=== PATIENT | female | born 1940 | race Caucasian/White ===

== ENCOUNTER 2017-07-27 15:35 | Emergency (ER) | payer BC, MEDICAID ==
[~2017-07-27] VITALS: Ht 152.4 cm; Wt 77.1 kg
[2017-07-27 15:45] VITALS: BP 182/129
--- NOTE | 2017-07-27 16:15 | NUR ---
Patient BIBA BLS, transferred to bed 4. RN evaluating patient at bedside.
[2017-07-27] MEDS ORDERED: MECLIZINE 25 MG TAB PO ONE (16:20)
--- NOTE | 2017-07-27 16:20 | NUR ---
76f biba with c/o 04/16 constant non radiating non provoked "all over head" mckinney x 2 days with dizziness; Pt deneis any sob, cp, visual changes, or abd pain. Pt is aox4. RR are even and unlabored. Pt positioned to comfort, bed down. All needs met at this time. Awaiting er md shirley. Will contniue to monitor
--- NOTE | 2017-07-27 16:32 | NUR ---
PT TO CT VIA ASIA ACCOMPANIED BY AUTOMOBILE MECHANIC
--- NOTE | 2017-07-27 16:45 | NUR ---
pt returned from ct accompanied by nuclear reactor technician
[2017-07-27] MEDS ORDERED: cloNIDine 0.1 MG TAB PO ONE (17:25)
--- NOTE | 2017-07-27 17:44 | NUR ---
lab by bedside
[2017-07-27 17:54] LABS: BASOPHILS # (AUTO) 0.1 K/uL (0.00-0.22); BASOPHILS % (AUTO) 1.7 % (0.0-2.0); EOSINOPHILS # (AUTO) 0.1 K/uL (0-0.4); HEMATOCRIT 39.5 % (36-48); HEMOGLOBIN 12.9 g/dL (12.0-16.0); LYMPHOCYTES # (AUTO) 2.1 K/uL (2.5-16.5); LYMPHOCYTES % (AUTO) 31.3 % (20.5-51.1); MEAN CORPUSCULAR HEMOGLOBIN 30 pg (27-31); MEAN CORPUSCULAR HGB CONC 33 g/dL (33-37); MEAN CORPUSCULAR VOLUME 91 fL (80-94); MONOCYTES # (AUTO) 0.6 K/uL (0.8-1.0); MONOCYTES % (AUTO) 8.5 % (1.7-9.3); NEUTROPHILS # (AUTO) 3.9 K/uL (1.8-7.7); NEUTROPHILS % (AUTO) 57.5 % (42.2-75.2); PLATELET COUNT (AUTO) 293 K/uL (140-450); RED BLOOD CELL COUNT(AUTO) 4.34 MIL/uL (4.20-5.40); RED CELL DISTRIBUTION WIDTH 14.2 % (11.6-13.7); WHITE BLOOD COUNT (AUTO) 6.8 K/uL (4.8-10.8)
--- NOTE | 2017-07-27 18:00 | NUR ---
er md patel by bedside updating pt and family on plan of care. pt sts "i feel better". pt is ao, rr are even and unlabored.
[2017-07-27 18:18] LABS: PROTHROMBIN TIME 9.9 secs (10.8-13.4)
[2017-07-27 18:23] LABS: ANION GAP 13.8 (8-16); CARBON DIOXIDE 25.3 mmol/L (21-32); CHLORIDE 103 mmol/L (98-107); POTASSIUM 4.1 mmol/L (3.5-5.1); SODIUM SERUM 138 mmol/L (136-145)
[2017-07-27 18:24] LABS: ALBUMIN 3.6 g/dL (3.4-5.0); ASPARTATE AMINOTRANSFERASE 30 U/L (15-37); CREATININE 1.2 mg/dL (0.6-1.3); GLUCOSE 105 mg/dL (74-106); TOTAL BILIRUBIN 0.3 mg/dL (0.0-1.0); UREA NITROGEN, BLOOD 18 mg/dL (7-18)
--- NOTE | 2017-07-27 18:50 | NUR ---
attemped to discharge pt. pt remains in [facility] with eyes closed. er md hernández by bedside to reexamine pt. vss. nad.
--- NOTE | 2017-07-27 19:00 | NUR ---
attempted to discharge pt. pt remains in gurney with eyes closed. vss. nad. rr are even and unlabored. security called.
--- NOTE | 2017-07-27 19:05 | NUR ---
attemped to discharge patient. pt remains in rney with eyes closed. rr are even and unlabored. vss. pt able to open and close eyes. lifted arms and patient block her hands from being dropped to face. pt able to move all four extremities. no motor or sensory deficit.
--- NOTE | 2017-07-27 19:05 | NUR ---
Note tgone in EDM - 07/28/17 at 1101 by CHARLOTTE attemped to discharge patient. pt remains in [facility] with eyes closed. rr are even and unlabored. vss. pt able to open and close eyes. lifted arms and patient block her hands from being dropped to face. pt able to move all four extremities.
--- NOTE | 2017-07-27 19:05 | NUR ---
notified chargemaster specialist jen of multiple attempts to discharge pt. jolynn rn by bedside attemping to discharge patient.
--- NOTE | 2017-07-27 19:07 | NUR ---
Note esther in EDM - 07/27/17 at 1927 by CHARLOTTE Patient discharged with v/s stable. Written and verbal after care instructions given and explained. Patient alert, oriented and verbalized understanding of instructions. Ambulatory with steady gait. All questions addressed prior to discharge. ID band removed. Patient advised to follow up with PMD. Rx of Meclizine given. Patient educated on indication of medication including possible reaction and side effects. Opportunity to ask questions provided and answered.
--- NOTE | 2017-07-27 19:07 | NUR ---
Note undone in EDM - 07/28/17 at 0948 by CHARLOTTE Patient discharged with v/s stable. Written and verbal after care instructions given and explained. Patient alert, oriented and verbalized understanding of instructions. Wheel Chair Assisted with to car with [employer] EMT and security. All questions addressed prior to discharge. ID band removed. Patient advised to follow up with PMD. Rx of meclizine given. Patient educated on indication of medication including possible reaction and side effects. Opportunity to ask questions provided and answered.
[2017-07-27 19:11] VITALS: BP 166/65
--- NOTE | 2017-07-28 09:07 | NUR ---
Patient discharged with v/s stable. Written and verbal after care instructions given and explained to patient and daughter. Daughter verbalized understanding of instructions. Wheel Chair Assisted with to car with security, [employer] emt, and daughter. All questions addressed prior to discharge. ID band removed. Patient/Daughter advised to follow up with PMD. Rx of given. Patient/Daughter educated on indication of medication including possible reaction and side effects. Opportunity to ask questions provided and answered.
== END 2017-07-27 19:11 | disposition home or self-care (01) ==
LOC: MED 15:35
DX: R51 Headache (principal); I10 Essential (primary) hypertension; F03.90 Unspecified dementia, unspecified severity, without behavioral disturbance, psychotic disturbance, mood disturbance, and anxiety
CPT/HCPCS: 36415; 70450; 71045; 80053; 84484; 85025; 85610; 85730; 99285; J8597; Q0092